=== PATIENT | male | born 1995 | race Caucasian/White ===

== ENCOUNTER 2018-06-18 22:45 | Emergency (ER) | payer SELFPAY ==
[~2018-06-18] VITALS: Ht 167.6 cm; Wt 65.3 kg
[2018-06-18 22:51] VITALS: BP 116/59; PULSE 79; RESP 16; Ht 167.6 cm; Wt 65.3 kg
== END 2018-06-19 01:07 | disposition left against medical advice (07) ==
LOC: FTE 22:45
DX: Z53.21 Procedure and treatment not carried out due to patient leaving prior to being seen by health care provider (principal)